=== PATIENT | female | born 1990 | race Two or more races ===

== ENCOUNTER → 2017-11-05 | Outpatient (REF) | payer OTHER ==
[2017-11-06 14:15] LABS: CHLAMYDIA DNA AMPLIFICATION POSITIVE (NEGATIVE); GC DNA AMPLIFICATION NEGATIVE (NEGATIVE)
== END ==
LOC: M SFHCLERA 13:10
DX: R30.0 Dysuria (principal)
CPT/HCPCS: 87088

== ENCOUNTER → 2018-02-02 | Outpatient (CLI) | payer OTHER | LOC: M LRY 13:43 | DX: M79.1 Myalgia (principal); M53.88 Other specified dorsopathies, sacral and sacrococcygeal region | CPT/HCPCS: 72190 ==